=== PATIENT | male | born 1975 | race Caucasian/White ===

== ENCOUNTER 2021-05-21 21:53 | Emergency (ER) | payer OTHER, BC, SELFPAY ==
[2021-05-21 21:55] VITALS: BP 134/86; PULSE 89; RESP 20; TEMP 36.6; O2SAT 98; BMI 38.2
[2021-05-21 22:51] VITALS: BP 115/76; PULSE 80; RESP 18; TEMP 36.8; O2SAT 97
--- NOTE | 2021-05-22 00:28 | ED_ITS ---
HPI - Allergic Reaction General Chief complaint: Allergic Reaction Stated complaint: allegric reaction Time Seen by Provider: 05/22/21 00:27 Source: patient Mode of arrival: ambulatory Limitations: no limitations History of Present Illness HPI narrative: 46-year-old male who came in after was exposed to cleaning solution got in contact to both forearms while he was cleaning at work. Patient is complaining of burning and itching to both forearms, patient washed his both hands thoroughly with soap and water felt little better. No eye contact, solution did not splash in the face or in the eyes. Related Data Allergies Allergy/AdvReac Type Severity Reaction Status Date / Time No Known Allergies Allergy Verified 05/22/21 00:28 Review of Systems Review of Systems: All other systems are reviewed and are negative Constitutional: Reports as per HPI and Reports no additional constitutional complaints Eyes: Reports as per HPI and Reports no additional eye complaints Reports system reviewed and no additional complaints, except as documented Cardiovascular: Reports as per HPI and Reports no additional cardiovascular complaints Respiratory: Reports as per HPI and Reports no additional respiratory complaints Gastrointestinal: Reports as per HPI and Reports no additional gastrointestinal complaints Genitourinary: Reports no additional female genitourinary complaints Musculoskeletal: Reports no additional musculoskeletal complaints Skin/Breast: Reports system reviewed and no additional complaints, except as docu Psychiatric: Reports no additional psychiatric complaints Endocrine: Reports no additional endocrine complaints Hematologic/Lymphatic: Reports no additional hematologic/lymphatic complaints Allergic/Immunologic: Reports no additional allergic/immunologic complaints Reports system reviewed and no additional complaints, except as documented and Reports Abnormal speech present [facility] Social History Social History Advance Directives: No Advance Directives Information Provided: No Physical Exam Vital Signs: Vital Signs: Last Vital Signs Temp 98.3 F 05/21/21 22:51 Pulse 80 05/21/21 22:51 Resp 18 05/21/21 22:51 BP 115/76 05/21/21 22:51 Pulse Ox 97 05/21/21 22:51 BMI result Body Mass Index 38.2 vital signs have been reviewed as appeared to be correct. Blood pressure normal. Heart rate normal. Respiration rate normal. Temperature normal. Oxygen saturation normal. Appearance: Alert. Oriented X3. No acute distress. Head: Normal external exam. Normocephalic. Atraumatic. No Ashley signs noted. No raccoon eyes noted Eyes: PERRLA. EOMI. Conjunctiva and sclera normal. Eyelids normal. ENT: TM's Normal. Pharynx normal. Uvula midline. Moist mucous membranes. No trismus noted. No drooling noted. No muffled voice noted. Neck: Normal inspection. Neck supple. FROM. No adenopathy. Thyroid Normal. No meningeal signs. No neck mass noted. CVS: Normal heart rate and rhythm. Heart sound normal. No murmurs noted. Pulses normal throughout. Respiratory: No respiratory distress. Painless inspiration. Breath sounds normal. No wheezes/rales/rhonchi noted. Chest nontender. No accessory muscle usage noted or decreased air movement noted. Abdomen: Soft and nontender. Bowel sounds normal in all 4 quadrants. No distention noted. No organomegaly noted. No visible injury noted. Back: No CVA tenderness. Full range of motion noted. Skin: Skin warm and dry. Normal skin color. Normal skin turgor. No rashes/lesions/lacerations noted. Extremities: Bilateral forearm mild redness and itching, no hives. Neuro: Oriented X 3. Cranial nerve exam: II-XII are grossly intact No motor deficit. No sensory deficit. Reflexes normal. Course Course Course Narrative: assessment and plan. Mild form of contact dermatitis at work, as discussed with the patient to keep soaking his both forearms and clean water, will give 1 dose of prednisone to help his symptoms of itching. wear protective suit at work. Discharge Plan Discharge Clinical Impression: Contact dermatitis Qualifiers: Contact dermatitis type: irritant Contact dermatitis trigger: solvent Qualified Code(s): L24.2 - Irritant contact dermatitis due to solvents Patient Disposition: Home, Self-Care Instructions: Contact Dermatitis (ED) Additional Instructions: use protective long sleeve suit at work. Ovoid to get in contact with any chemicals. Referrals: Erik Camacho MD [Primary Care Provider] - 2 days
[2021-05-22] MEDS: predniSONE 20 MG TABLET 40 MG PO (00:39)
== END 2021-05-22 00:43 | disposition home or self-care (01) ==
PROVIDERS: Emergency Provider Emergency Medicine; PCP Internal Medicine
DX: Z04.2 Encounter for examination and observation following work accident (principal); L24.2 Irritant contact dermatitis due to solvents
CPT/HCPCS: 99283